=== PATIENT | female | born 1990 | race Caucasian/White ===

== ENCOUNTER 2021-04-11 10:37 | Outpatient (CLI) | payer OTHER, SELFPAY | END 2021-04-11 10:38 | disposition home or self-care (01) | PROVIDERS: PCP Family Medicine; Visit Provider Family Medicine | DX: R05 Cough (principal) | CPT/HCPCS: 92557; 92567 ==

== ENCOUNTER 2024-04-27 08:23 | Outpatient (CLI) | payer OTHER, SELFPAY | END 2024-04-27 08:24 | disposition home or self-care (01) | PROVIDERS: PCP Family Medicine; Visit Provider Family Medicine | DX: H90.42 Sensorineural hearing loss, unilateral, left ear, with unrestricted hearing on the contralateral side (principal) | CPT/HCPCS: 92557; 92567 ==